=== PATIENT | female | born 1950 | race Caucasian/White ===

== ENCOUNTER → 2021-02-06 10:40 | Outpatient (CLI) | payer MEDICARE, OTHER, SELFPAY ==
--- NOTE | ~2021-02-06 | MM_ITS ---
EXAMINATION: MM screening ama BI w briseida HISTORY: Screening TECHNIQUE: Craniocaudal and mediolateral oblique 3-D tomosynthesis images were obtained and synthetic 2-D images were generated. CAD analysis was submitted and interpreted. COMPARISON: 01/31/2018 BREAST PARENCHYMAL COMPOSITION: There are scattered areas of fibroglandular density. FINDINGS: There is no evidence of suspicious mass, calcification, or architectural distortion to sugg est malignancy in either breast. There has been no suspicious interval change. IMPRESSION: 1. No mammographic evidence of malignancy. 2. Recommend routine screening mammography in one year. BI-RADS Category 1: Negative Reviewed, dictated and finalized at location A.
== END ==
PROVIDERS: PCP Internal Medicine; Visit Provider Internal Medicine
DX: Z12.31 Encounter for screening mammogram for malignant neoplasm of breast (principal)
CPT/HCPCS: 77063; 77067

== ENCOUNTER 2022-07-11 15:48 | Observation (INO) | payer MEDICARE, SELFPAY ==
[2022-07-11] VITALS (42 sets, daily range): BP systolic 98–147; BP diastolic 63–87; PULSE 83–105; RESP 12–27; TEMP 36.7–36.8; O2SAT 92–100; BMI 30.2
--- NOTE | ~2022-07-11 | CT_ITS ---
EXAMINATION: CT brain wo con INDICATION: Transient alteration of awareness COMPARISON: None TECHNIQUE: Standard unenhanced head CT. The dose-length product (DLP) was 529.67 mGy-cm. The mA was a djusted according to patient size. Iterative reconstruction technique was employed. FINDINGS: There is no acute intraparenchymal hemorrhage. No evidence of mass lesion. No evidence of a cute infarction. There is mild periventricular and subcortical hypodensity probably related to small vessel ischemic disease. There is mild prominence of the sulci and ventricles related to cerebral atr ophy. Intracranial calcified cerebral atherosclerosis is noted. There are no extra-axial collections. There is no mass effect or midline shift. Changes in the globes are likely from ocular lens surgery. There is mild mucosal thickening of the paranasal sinuses. There is a small right mastoid effusion. IMPRESSION: 1. No acute intracranial abnormality. 2. Age related findings. Reviewed, dictated and finalized at location B. CAL PHYSICIST
--- NOTE | ~2022-07-11 | XR_ITS ---
EXAMINATION: XR hip RT 2V w AP pelvis DATE: 07/12/2022 13:46 INDICATION: Right hip pain. Fall. TECHNIQUE: An anteroposterior view of the pelvis and 3 views of right hip were obtained. COMPARISON: None. FINDINGS: Bone alignment is normal. No fracture. The hip joint spaces are normal. There is mild lumba r spondylosis. IMPRESSION: 1. Normal hips. Reviewed, dictated and finalized at location A. TIONS FACTORY WORKER IMPRESSION: 1. Normal hips.
--- NOTE | ~2022-07-11 | XR_ITS ---
EXAMINATION: XR chest 1V portable Exam Date/Time: 07/11/2022 17:28 JAVA TECH HISTORY: SYNCOPAL EVENT X TODAY Comparison: None available. RESULT: Lines, tubes, and devices: None. Lungs and pleura: Clear. Cardiomediastinal silhouette: Unremarkable. Other: No acute osseous or upper abdominal finding. IMPRESSION: No acute cardiopulmonary process. Reviewed, dictated and finalized at location K. TECH
--- NOTE | ~2022-07-11 | US_ITS ---
EXAMINATION: US carotid duplex BI DATE: 07/12/2022 11:47 INDICATION: Syncope. Vertigo. TECHNIQUE: Grayscale, color Doppler, and pulsed Doppler images of the cervical carotid arteries were obtained. The degree of vessel stenosis is placed in one of the following categories: normal, <50%, 5 0-69%, >=70% but less than near-occlusion, near-occlusion, or total occlusion. Note that percent sten osis relative to normal distal artery lumen diameter is indirectly measured from velocity measurement s as described by Markus, et al. Radiology 2003; 229:340-346. COMPARISON: None. FINDINGS: RIGHT: The right common carotid artery (CCA) peak systolic velocity (PSV) is 84 cm/s. The right internal car otid artery (ICA) PSV is 113 cm/s. The right ICA end-diastolic velocity (EDV) is 31 cm/s. The right I CA/CCA PSV ratio is 1.4. Grayscale and color Doppler images yield an estimate of <50% diameter reduct ion from plaque in the ICA. The external carotid artery (ECA) PSV is 81 cm/s. There is antegrade flow in the right vertebral artery. LEFT: The left CCA PSV is 85 cm/s. The left ICA PSV is 101 cm/s. The left ICA EDV is 26 cm/s. The left ICA/ CCA PSV ratio is 1.2. Grayscale and color Doppler images yield an estimate of <50% diameter reduction from plaque in the ICA. The ECA PSV is 111 cm/s. There is antegrade flow in the left vertebral arter y. IMPRESSION: 1. <50% stenosis in the right internal carotid artery. 2. <50% stenosis in the left internal carotid artery. Reviewed, dictated and finalized at location A. D OBSERVER
--- NOTE | 2022-07-11 15:54 | ECG_ITS ---
Measurements Intervals [place] Rate: 86 P: 60 UT: 173 QRS: 20 QRSD: 94 T: 63 QT: 381 QTc: 457 Interpretive Statements SINUS RHYTHM POSSIBLE LEFT ATRIAL ENLARGEMENT DELAYED PRECORDIAL R/S TRANSITION MINIMAL Q WAVES- INFERIOR LEADS BORDERLINE ST-T WAVE ABNORMALITY- HIGH LATERAL LEADS BASELINE ARTIFACT- V4-V5 BORDERLINE ECG NO PREVIOUS ECG AVAILABLE FOR COMPARISON Electronically Signed On 07-12-2022 7:45:29 HARDWARE SALES ASSISTANT by Flavio Booth D.O.
--- NOTE | 2022-07-11 17:03 | ED.SYNCOPE ---
HPI - Syncope General Chief Complaint: Syncope Stated Complaint: SYNCOPAL Time Seen by Provider: 07/11/22 16:29 Source: patient, family and RN notes reviewed Mode of arrival: EMS Limitations: no limitations History of Present Illness HPI narrative: This is a 71 year old female who presents for evaluation of a syncopal episode. Family members that were present during patient's syncopal episode are at bedside and they are assisting with history . They report that patient was sitting at dinner table and she told them she felt like she was going to pass out. Patient slumped down into the chair with her eyes rolling back. They held patient up in the chair to prevent her from fall. IT is reported that patient's voice became lower to a whisper and she went unresponsive. They called 911 and they report patient was unresponsive until EMS arrived. On EMS arrival, they laid patient on the floor and she became responsive. She was found to be hypotensive by EMS, and it is reported that patient was orthostatic. Patient was started on IVF by EMS. Patient is sitting up in bed and she states she feels better. She reports she felt pain in her neck and felt like she was going to pass out. She was cold and clammy. She denies similar episode in the past. She denies chest pain, sob, nausea, vomiting , diarrhea or abdominal pain. She denies any medication changes. She states she normally does not eat or drink very much . Related Data Home Medications Medication Instructions Recorded Confirmed atorvastatin 20 mg tablet 20 mg PO HS 07/11/22 07/11/22 brimonidine 0.2 %-timolol 0.5 % 1 drp EACH EYE BID 07/11/22 07/11/22 eye drops (Teofilo) bupropion HCl 150 mg tablet,12 hr 150 mg PO BID 07/11/22 07/11/22 sustained-release cyclobenzaprine 10 mg tablet 10 mg PO TID PRN Muscle Spasm 07/11/22 07/11/22 diclofenac sodium 75 mg 75 mg PO Q12H 07/11/22 07/11/22 tablet,delayed release pantoprazole 40 mg tablet,delayed 40 mg PO DAILY 07/11/22 07/11/22 release valacyclovir 1 gram tablet 1,000 mg PO HS 07/11/22 07/11/22 zolpidem 10 mg tablet 10 mg PO HS 07/11/22 07/11/22 Allergies Allergy/AdvReac Type Severity Reaction Status Date / Time codeine AdvReac Mild Itching Verified 07/12/22 08:32 Review of Systems Constitutional: Constitutional: Denies weakness Cardiovascular: Cardiovascular: Denies syncope, Denies rapid heart rate, Denies irregular heart rhythm, Denies leg edema and Denies dyspnea Respiratory: Respiratory: Denies chest congestion, Denies hemoptysis, Denies excessive phlegm production and Denies dyspnea Gastrointestinal: Gastrointestinal: Denies abdominal pain, Denies hematochezia, Denies diarrhea and Denies vomiting Genitourinary: Genitourinary: Denies hematuria and Denies dysuria Musculoskeletal: Musculoskeletal: Denies joint swelling, Denies loss of height and Denies muscle weakness Neurologic: Reports syncope, Denies focal weakness and Denies weakness PMFSH Past Medical History Medical History (Updated 07/12/22 @ 10:18 by Alem Sawant PA-C) Arthritis Chronic pain Depression GERD (gastroesophageal reflux disease) Hyperlipidemia Surgical History Surgical History Hx of cholecystectomy Family History Family History Father Heart attack Grandparent Diabetes mellitus Alzheimers disease Mother Lung cancer Social History Social History (Updated 07/12/22 @ 10:23 by Alem Sawant PA-C) Social History: patient lives at home alone is independent in daily activities. She works full-time cleaning homes. She designates her daughter, Eliza, as her surrogate decision maker. She would like to be a full code Smoking status: Never smoker Alcohol intake: current Alcohol use details: Couple drinks/year Substance use: never Lack of Transportation: No Lack of Food: Never True Curr
[2022-07-11 17:14] LABS: Basophils Percent Auto 0.5 % (0.2-1.2); Eosinophils Percent Auto 0.6 % (0-4.4); Hematocrit 43.5 % (37.0-47.0); Hemoglobin 14.3 g/dL (12.0-15.0); Immature Granulocyte Absolute 0.03 K/mm3 (0.00-0.031); Immature Granulocyte Percent A 0.5 % (0-0.5); Lymphocytes Absolute Auto 1.31 K/mm3 (0.9-3.2); Mean Corpuscular HGB Conc 32.9 g/dl (32-36); Mean Corpuscular Hemoglobin 31.4 pg (26-34); Mean Corpuscular Volume 95.6 fl (80-100); Mean Platelet Volume 9.4 fl (7.4-10.4); Monocytes Absolute Auto 0.4 K/mm3 (0.1-0.6); Monocytes Percent Auto 5.5 % (2.6-8.5); Neutrophils Absolute Auto 4.8 K/mm3 (1.3-6.7); Neutrophils Percent Auto 72.9 % (45.5-73.1); Platelet Count Result 209 k/mm3 (150-375); Red Blood Count 4.55 M/mm3 (4.2-5.4); Red Cell Distribution Width 13.4 % (11.5-14.5); White Blood Count 6.6 K/mm3 (4.5-10.0)
[2022-07-11 17:26] LABS: Alanine Aminotransferase 19 U/L (6-35); Albumin Level 4.2 g/dL (3.5-5.1); Alkaline Phosphatase 85 U/L (38-126); Anion Gap 10 mmol/L (8-16); Aspartate Amino Transferase 25 U/L (14-36); Bilirubin,Total 0.5 mg/dL (0.2-1.3); Blood Urea Nitrogen 22 mg/dL (7-17); Calcium 9.1 mg/dL (8.4-10.2); Carbon Dioxide 20 mmol/L (22-30); Chloride 106 mmol/L (98-107); Estimated Glomerular Filt Rate > 60; Glucose 97 mg/dL (65-110); Magnesium 1.8 mg/dL (1.6-2.3); Potassium 3.8 mmol/L (3.4-5.0); Sodium 136 mmol/L (137-145)
[2022-07-11 17:38] LABS: Troponin I < 0.012 ng/mL (0.000-0.034)
[2022-07-11 17:50] LABS: Influenza A QL RT-PCR Negative (Negative); Influenza B QL RT-PCR Negative (Negative); SARS-CoV-2 RNA PCR Negative
[2022-07-11 18:41] LABS: Prothrombin Time 12.8 Seconds (11.1-14.7)
[2022-07-11 18:42] LABS: Partial Thromboplastin Time 22.7 SECONDS (22.3-36.8)
[2022-07-11 18:55] LABS: D Dimer 0.35 ug/mL (<0.48)
[2022-07-11] MEDS: SODIUM CHLORIDE 0.9% IV 1,000 ML 999 ML IV CONT (19:07)
[2022-07-11] MEDS: SODIUM CHLORIDE 0.9% IV 1,000 ML 125 ML IV CONT (22:55)
[2022-07-12] VITALS (10 sets, daily range): BP systolic 129–160; BP diastolic 62–85; PULSE 67–94; RESP 18; TEMP 36.3–36.5; O2SAT 97–100
--- NOTE | 2022-07-12 | ECHO_ITS ---
Patient Info Name: Della Crowley Age: 71 years : 1950 Gender: Female Ht: 59 in Wt: 149 lbs BSA: 1.70 m2 HR: 67 bpm BP: 134 / 62 mmHg Heart Rhythm: Sinus Rhythm Technical Quality: Fair Exam Date: 07/12/2022 12:47 PM Exam Location: [facility] Pulmonary Patient Status: Outpatient Admit Date: 07/11/2022 Staff Ordering Physician: Alem Sawant PA-C Hvac Manager: Tala Dobbs RDCS Attending Provider: Alem Sawant PA-C Referring Physician: Savana MCKEON; Exam Type: CA echo doppler color flow Study Info Indications R55 - Syncope and collapse Complete two-dimensional, color flow and Doppler transthoracic echocardiogram is performed. Summary 1. Complete two-dimensional, color flow and Doppler transthoracic echocardiogram is performed. 2. Left ventricular chamber dimension is normal. 3. Left ventricular systolic function is normal, estimated at 65-70%. 4. There is mildly increased left ventricular wall thickness. 5. The left ventricular diastolic function is grade I diastolic dysfunction. 6. Left atrial chamber dimension is mildly enlarged. 7. The mitral valve has anterior prolapse and posterior prolapse. 8. There is mild mitral valve regurgitation. 9. The mitral valve annulus is mildly calcified. 10. There is mild tricuspid valve regurgitation. 11. Moderate pulmonary hypertension, estimated pulmonary arterial systolic pressure is 45 mmHg. Left Ventricle Left ventricular chamber dimension is normal. Left ventricular systolic function is normal, estimated at 65-70%. There is mildly increased left ventricular wall thickness. The left ventricular diastolic function is grade I diastolic dysfunction. Right Ventricle Right ventricular chamber dimension is normal. Right ventricular systolic function is normal. Left Atria Left atrial chamber dimension is mildly enlarged. Right Atria Right atrial chamber dimension is normal. Atrial Septum Intact interatrial septum visualized by color flow imaging. Aortic Valve The aortic valve is trileaflet. There is mild aortic valve sclerosis. There is no aortic valve stenosis. There is trace aortic valve regurgitation. Pulmonic Valve The pulmonic valve is normal. There is no pulmonic valve stenosis. There is trace pulmonic regurgitation. Mitral Valve The mitral valve has anterior prolapse and posterior prolapse. There is no mitral valve stenosis. There is mild mitral valve regurgitation. The mitral valve annulus is mildly calcified. Tricuspid Valve The tricuspid valve leaflets are normal. There is no significant tricuspid valve stenosis. There is mild tricuspid valve regurgitation. Moderate pulmonary hypertension, estimated pulmonary arterial systolic pressure is 45 mmHg. Pericardium/Pleural The pericardium appears normal. There is no pericardial effusion. Inferior Vena Cava Normal inferior vena cava with <50% collapse upon inspiration consistent with elevated right atrial pressure, 10 mmHg. Aorta The aortic root size at the sinus of Valsalva is normal. The prox ascending aorta size is normal. Left Ventricular Outflow Tract Name Value Normal LVOT 2D LVOT Diameter 2.0 cm LVOT
[2022-07-12] MEDS: DICLOFENAC SOD 75 MG TABLET.EC PO (02:27)
[2022-07-12 06:22] LABS: Basophils Percent Auto 0.4 % (0.2-1.2); Eosinophils Percent Auto 0.7 % (0-4.4); Hematocrit 34.9 % (37.0-47.0); Hemoglobin 11.6 g/dL (12.0-15.0); Immature Granulocyte Absolute 0.01 K/mm3 (0.00-0.031); Immature Granulocyte Percent A 0.2 % (0-0.5); Lymphocytes Absolute Auto 1.82 K/mm3 (0.9-3.2); Mean Corpuscular HGB Conc 33.2 g/dl (32-36); Mean Corpuscular Hemoglobin 31.2 pg (26-34); Mean Corpuscular Volume 93.8 fl (80-100); Mean Platelet Volume 9.6 fl (7.4-10.4); Monocytes Absolute Auto 0.4 K/mm3 (0.1-0.6); Monocytes Percent Auto 6.9 % (2.6-8.5); Neutrophils Absolute Auto 3.1 K/mm3 (1.3-6.7); Neutrophils Percent Auto 57.8 % (45.5-73.1); Platelet Count Result 181 k/mm3 (150-375); Red Blood Count 3.72 M/mm3 (4.2-5.4); Red Cell Distribution Width 13.5 % (11.5-14.5); White Blood Count 5.4 K/mm3 (4.5-10.0)
[2022-07-12 06:24] LABS: Alanine Aminotransferase 16 U/L (6-35); Albumin Level 3.5 g/dL (3.5-5.1); Alkaline Phosphatase 64 U/L (38-126); Anion Gap 5 mmol/L (8-16); Aspartate Amino Transferase 18 U/L (14-36); Bilirubin,Total 0.2 mg/dL (0.2-1.3); Blood Urea Nitrogen 16 mg/dL (7-17); Calcium 8.4 mg/dL (8.4-10.2); Carbon Dioxide 23 mmol/L (22-30); Chloride 111 mmol/L (98-107); Estimated Glomerular Filt Rate > 60; Glucose 102 mg/dL (65-110); Potassium 3.5 mmol/L (3.4-5.0); Sodium 139 mmol/L (137-145)
[2022-07-12] MEDS: CYCLOBENZAPRINE HCL 10 MG TABLET PO ×2 (08:42→20:58)
[2022-07-12] MEDS: ACETAMINOPHEN 325 MG TABLET 650 MG PO (08:42)
--- NOTE | 2022-07-12 10:04 | PM.IMHP ---
H&P: HPI History of Present Illness Date/Time: 07/12/22 10:04 Chief Complaint: Syncope Narrative: date of service: 07/12/2022 Della Crowley is a 71-year-old female with a history of arthritis, hyperlipidemia, GERD, depression, and chronic pain followed by pain management who presented to the emergency department on 07/11/2022 after a syncopal episode. Patient states she was eating dinner at the table. she was sitting down for about 45 minutes to an hour, finishing her meal when the sensation hit herthat she was going to pass out. She states she could feel her vision going and could not get her thoughts together. She told her daughter she was going to pass out. Her daughter rushed to her and held her up in the chair. the patient was informed by her daughter that she turned pale and cold, her eyes rolled back in her head and her mouth drooped. This went on for about 20 minutes while awaiting EMS. When EMS arrived, they lower the patient to the ground and she came to. it has been reported the patient was hypotensive and orthostatic. IV fluids started by EMS and patient came to the ED for evaluation. On presentation to the ED, her blood pressure was 129/76, additional vital signs stable, CBC and BMP unremarkable, troponin negative, and chest x-ray revealed no acute cardiopulmonary process. The patient has been admitted to the hospitalist service for observation. At the time of my encounter with the patient, she states that she is feeling back to her usual state of health. She does complain of right hip and back pain which she attributes to being placed on to the ground forcefully after her syncopal episode. She is unsure if she had her head when she was lowered to the ground. She complains of pain mostly in her right hip and back that is different from her typical chronic pain. She denies visual changes, speech changes, weakness, facial drooping, dysphagia, numbness, or tingling of her extremities. 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 she complains of chronic neck pain. she is very concerned, as is her daughter, that she had a stroke though she denies any residual symptoms. Review of Systems Review of Systems: All systems reviewed & are unremarkable except as noted in HPI and below PMFSH Past Medical History Medical History (Updated 07/12/22 @ 10:18 by Alem Sawant PA-C) Arthritis Chronic pain Depression GERD (gastroesophageal reflux disease) Hyperlipidemia Surgical History Surgical History Hx of cholecystectomy Family History Family History Father Heart attack Grandparent Diabetes mellitus Alzheimers disease Mother Lung cancer Social History Social History (Updated 07/12/22 @ 10:23 by Alem Sawant PA-C) Social History: patient lives at home alone is independent in daily activities. She works full-time cleaning homes. She designates her daughter, Eliza, as her surrogate decision maker. She would like to be a full code Smoking status: Never smoker Alcohol intake: current Alcohol use details: Couple drinks/year Substance use: never Lack of Transportation: No Lack of Food: Never True Current Housing: I Have Housing Concerned About Future Housing: No Difficulty Paying Gas/Electric Bills: No Difficulty Paying for Meds: No Currently Unemployed: No Education: High School Diploma/GED Difficulty w/ Childcare or Family Care: No Spiritual care concerns: No Meds Home Medications and Allergies Home Medications Medication Instructions Recorded Confirmed Type atorvastatin 20 mg tablet 20 mg PO HS 07/11/22 07/11/22 History brimonidine 0.2 %-timolol 0.5 % 1 drp EACH EYE BID 07/11/22 07/11/22 History eye drops (Combigan) bupropion HCl 150 mg tablet,1
[2022-07-12] MEDS: LIDOCAINE 5% PATCH 2 PATCH TRANSDERM (10:55)
[2022-07-12] MEDS: ENOXAPARIN 40 MG/0.4 ML SYRINGE SUB-Q (10:55)
[2022-07-12] MEDS: PANTOPRAZOLE 40 MG TABLET PO (10:56)
[2022-07-12] MEDS: buPROPion HCL SR (12 HR) 150 MG TAB PO ×2 (10:56→20:50)
[2022-07-12] MEDS: HYDROcodone/acetaminophen (*CRX) 5-325 MG TABLET 1 TAB PO ×2 (14:57→20:57)
[2022-07-12] MEDS: ZOLPIDEM TARTRATE (*CRX) 5 MG TABLET 10 MG PO (20:50)
[2022-07-12] MEDS: ATORVASTATIN 20 MG TABLET PO (20:50)
[2022-07-12] MEDS: valACYclovir HCL 500 MG TABLET 1000 MG PO (21:29)
[2022-07-13] VITALS (7 sets, daily range): BP systolic 140–153; BP diastolic 63–81; PULSE 68–86; RESP 16–18; TEMP 36.3–36.5; O2SAT 97–99
[2022-07-13 06:51] LABS: Hematocrit 36.6 % (37.0-47.0); Hemoglobin 12.2 g/dL (12.0-15.0); Mean Corpuscular HGB Conc 33.3 g/dl (32-36); Mean Corpuscular Hemoglobin 30.7 pg (26-34); Mean Platelet Volume 9.5 fl (7.4-10.4); Platelet Count Result 192 k/mm3 (150-375); Red Blood Count 3.98 M/mm3 (4.2-5.4); Red Cell Distribution Width 13.3 % (11.5-14.5); White Blood Count 4.1 K/mm3 (4.5-10.0)
[2022-07-13 07:03] LABS: Anion Gap 4 mmol/L (8-16); Blood Urea Nitrogen 8 mg/dL (7-17); Calcium 9.2 mg/dL (8.4-10.2); Carbon Dioxide 28 mmol/L (22-30); Chloride 106 mmol/L (98-107); Estimated Glomerular Filt Rate > 60; Glucose 93 mg/dL (65-110); Potassium 3.3 mmol/L (3.4-5.0); Sodium 138 mmol/L (137-145)
[2022-07-13] MEDS: buPROPion HCL SR (12 HR) 150 MG TAB PO (08:43)
[2022-07-13] MEDS: POTASSIUM CHLORIDE 20 MEQ TABLET PO (08:43)
[2022-07-13] MEDS: PANTOPRAZOLE 40 MG TABLET PO (08:44)
[2022-07-13] MEDS: ENOXAPARIN 40 MG/0.4 ML SYRINGE SUB-Q (08:44)
[2022-07-13] MEDS: LIDOCAINE 5% PATCH 2 PATCH TRANSDERM (08:44)
[2022-07-13] MEDS: CYCLOBENZAPRINE HCL 10 MG TABLET PO (08:52)
[2022-07-13] MEDS: HYDROcodone/acetaminophen (*CRX) 5-325 MG TABLET 1 TAB PO (08:52)
--- NOTE | 2022-07-13 16:49 | PM.DS ---
DS: Admitting Diagnosis Discharge Date 07/13/22 Admitting Diagnosis syncope DS: Discharge Diagnosis Discharge Diagnosis (1) Syncope: Code(s): R55 - Syncope and collapse Status: Acute Assessment and Plan: (2) Hip pain: Code(s): M25.559 - Pain in unspecified hip Status: Acute Assessment and Plan: (3) Chronic pain: Code(s): G89.29 - Other chronic pain Status: Acute Assessment and Plan: DS: Summary Hospital Course Hospital Course: date of admission: 07/11/2022 date of discharge: 07/13/2022 Della Crowley is a 71-year-old female with a history of arthritis, hyperlipidemia, GERD, depression, and chronic pain followed by pain management who presented to the emergency department on 07/11/2022 after a syncopal episode.?On presentation to the ED, her blood pressure was 129/76, additional vital signs stable, CBC and BMP unremarkable, troponin negative, and chest x-ray revealed no acute cardiopulmonary process.? she was admitted to the hospitalist service for further evaluation and management. Please see above for further details. Patient had unremarkable workup including negative head CT, negative carotid Dopplers, unremarkable echocardiogram, negative orthostatic vital signs. She was monitored on telemetry for over 24 hours with no evidence of dysrhythmia or pauses. She will continue with a 30 day media monitor following discharge.? Patient was rehydrated with IV fluids in felt back to her usual state of health. She was able to ambulate without difficulty. Blood pressures remained stable. Patient complained of hip pain when lowered to ground. Hip x-ray with no evidence of fracture or malalignment. Symptoms resolved. She will follow-up with her PCP in 1 week for further monitoring. Given patient's overall improvement, she was determined to no longer require inpatient care. Discussed with patient and her family worrisome signs and symptoms for which to return and she was educated on her medications. She was discharged in hemodynamically stable condition on 07/13/2022. Time Spent with Patient Time attestation: Total time spent providing and/or coordinating discharge services: 40 minutes Time spent: Greater than 30 minutes Exam Narrative: General:? well-nourished well-appearing 71-year-old female,? sitting up in bed, comfortable, NARD Neuro: awake, alert and oriented x4, speech clear,? no focal neuro deficits noted HEENMT:? normocephalic, atraumatic, EOMI, sclerae anicteric, moist oral mucosa Respiratory: clear to auscultation bilaterally, nonlabored breathing Cardio: regular rate, regular rhythm with S1-S2 Abdomen:? nondistended, normoactive bowel sounds, soft, nontender to palpation Extremities: no edema, erythema, or tenderness to palpation Skin: no rashes or lesions, warm and dry Psych: appropriate mood and affect, judgment and insight intact DS: Data Data Completed and Pending Labs on day of discharge: Labs from last 24 hours 07/13/22 07/13/22 06:27 06:27 WBC 4.1 L RBC 3.98 L Hgb 12.2 Hct 36.6 L MCV 92.0 MCH 30.7 MCHC 33.3 RDW 13.3 Plt Count 192 MPV 9.5 Sodium 138 Potassium 3.3 L Chloride 106 Carbon Dioxide 28 Anion Gap 4 L BUN 8 D Creatinine 0.60 L Estim Creat Clear Calc Not Reportable Estimated GFR > 60 Glucose 93 Calcium 9.2 Additional Comments Additional comments: ITS Impressions Chest X-Ray 07/11/22 18:01 IMPRESSION: No acute cardiopulmonary process. Head CT 07/12/22 11:52 IMPRESSION: 1. No acute intracranial abnormality. 2. Age related findings. Carotid Doppler Study 07/12/22 11:55 IMPRESSION: 1. <50% stenosis in the right internal carotid artery. 2. <50% stenosis in the left internal carotid artery. Hip/Pelvis X-Ray 07/12/22 13:46 IMPRESSION: 1. Normal hips. Discharge Plan Discharge Attending physician on discharge: Chasity Blue
== END 2022-07-13 15:07 | disposition home or self-care (01) ==
LOC: ANHED 19:49 → ANH3MEDSUR 07-12 07:17
PROVIDERS: Emergency Medicine; Admitting Provider Family Medicine; Emergency Provider General Practice; PCP Internal Medicine; Visit Provider Physician Assistant
DX: I95.1 Orthostatic hypotension (principal); M25.559 Pain in unspecified hip; M19.90 Unspecified osteoarthritis, unspecified site; G89.29 Other chronic pain; M54.2 Cervicalgia; M25.519 Pain in unspecified shoulder; M54.9 Dorsalgia, unspecified; F32.A Depression, unspecified; K21.9 Gastro-esophageal reflux disease without esophagitis; E78.5 Hyperlipidemia, unspecified; Z82.49 Family history of ischemic heart disease and other diseases of the circulatory system; F10.90 Alcohol use, unspecified, uncomplicated; I08.1 Rheumatic disorders of both mitral and tricuspid valves; I27.20 Pulmonary hypertension, unspecified; Z79.899 Other long term (current) drug therapy; Z20.822 Contact with and (suspected) exposure to COVID-19
CPT/HCPCS: 36415; 70450; 71045; 73502; 80048; 80053; 83735; 84484; 85025; 85027; 85380; 85610; 85730; 87636; 93005; 93306; 93880; 96360; 96361; 96372; 99285; A9270; G0378; J1650; J7030

== ENCOUNTER → 2023-04-11 13:34 | Outpatient (CLI) | payer MEDICARE, SELFPAY ==
--- NOTE | ~2023-04-11 | MM_ITS ---
EXAMINATION: MM screening ama BI w briseida HISTORY: Screening mammogram TECHNIQUE: Craniocaudal and mediolateral oblique 3-D tomosynthesis images were obtained and synthetic 2-D images were generated. CAD analysis was submitted and interpreted. COMPARISON: 02/06/2021 bilateral screening mammogram BREAST PARENCHYMAL COMPOSITION: FINDINGS: Multiple bilateral benign calcifications are noted. There is no evidence of suspicious mass , calcification, or architectural distortion to suggest malignancy in either breast. There has been n o suspicious interval change. IMPRESSION: 1. No mammographic evidence of malignancy. 2. Recommend routine screening mammography in one year. BI-RADS Category 2: Benign finding(s). Reviewed, dictated and finalized at location A.
== END ==
PROVIDERS: PCP Internal Medicine; Visit Provider Internal Medicine
DX: Z12.31 Encounter for screening mammogram for malignant neoplasm of breast (principal)
CPT/HCPCS: 77063; 77067

== ENCOUNTER 2023-06-03 00:33 | Day surgery (SDC) | payer MEDICARE, SELFPAY ==
[2023-05-23 08:46] VITALS: BMI 24.3
--- NOTE | 2023-06-01 09:05 | SUR.PREOP ---
Addendum entered by PATRICK Mack 06/01/23 09:07: Patient stated she is driving for her procedure and daughter and grandson picking her up after. She mentioned she does not drive in the dark and might be a little late arriving. Discussed her leaving her house at 7 and we would make accommodations for her. Patient voiced understanding. Original Note: Patient called regarding upcoming procedure. Reviewed preop instructions, appointment times, and procedure prep.
--- NOTE | 2023-06-02 13:30 | PM.HPGS ---
History of Present Illness History of Present Illness Consent: Risks, benefits, and alternatives have been discussed and questions answered. Patient agrees to proceed with procedure. Chief complaint: neoplasm of the colon Narrative: Della Crowley is a 72 year old female referred for colon cancer screening. Review of Systems Review of Systems: All systems reviewed & are unremarkable except as noted in HPI and below PMFSH Past Medical History Medical History Arthritis Chronic pain Depression GERD (gastroesophageal reflux disease) Hyperlipidemia Surgical History Surgical History Hx of cholecystectomy Family History Family History Father Heart attack Grandparent Diabetes mellitus Alzheimers disease Mother Lung cancer Social History Social History Social History: patient lives at home alone is independent in daily activities. She works full-time cleaning homes. She designates her daughter, Eliza, as her surrogate decision maker. She would like to be a full code Smoking status: Never smoker Alcohol intake: current Alcohol use details: Couple drinks/year Substance use: never Substance use type: does not use Lack of Transportation: No Lack of Food: Never True Current Housing: I Have Housing Concerned About Future Housing: No Difficulty Paying Gas/Electric Bills: No Difficulty Paying for Meds: No Currently Unemployed: No Education: High School Diploma/GED Difficulty w/ Childcare or Family Care: No Living arrangements: alone Spiritual care concerns: No Meds Home Medications and Allergies Home Medications Medication Instructions Recorded Confirmed Type atorvastatin 20 mg tablet 20 mg PO HS 07/11/22 05/23/23 History brimonidine 0.2 %-timolol 0.5 % 1 drp EACH EYE BID 07/11/22 05/23/23 History eye drops (Combigan) bupropion HCl 150 mg tablet,12 hr 150 mg PO BID 07/11/22 05/23/23 History sustained-release cyclobenzaprine 10 mg tablet 10 mg PO TID PRN Muscle Spasm 07/11/22 05/23/23 History diclofenac sodium 75 mg 75 mg PO Q12H 07/11/22 05/23/23 History tablet,delayed release pantoprazole 40 mg tablet,delayed 40 mg PO DAILY 07/11/22 05/23/23 History release valacyclovir 1 gram tablet 1,000 mg PO BID 07/11/22 05/23/23 History zolpidem 10 mg tablet 10 mg PO HS 07/11/22 05/23/23 History semaglutide 0.25 mg or 0.5 mg (2 0.5 mg subcut WEEKLY Wt loss 05/23/23 05/23/23 History mg/1.5 mL) subcutaneous pen injector Allergies Allergy/AdvReac Type Severity Reaction Status Date / Time codeine AdvReac Mild Itching Verified 05/23/23 08:44 Exam Const: General: alert Orientation/consciousness: patient oriented x3 Resp: Auscultation: clear to auscultation bilaterally Cardio: Rhythm: regular rhythm GI: GI Palp: Yes Soft to palpation and No Tenderness to palpation present (GI) Neuro: General: patient oriented x3 Assessment and Plan Assessment and plan (1) Colon cancer screening: Code(s): Z12.11 - Encounter for screening for malignant neoplasm of colon Status: Acute Assessment and Plan: Colonoscopy with possible biopsy or polypectomy or cautery or injection of substances.
[2023-06-03 07:47] VITALS: BP 129/60; PULSE 64; RESP 20; TEMP 36.2; O2SAT 100; BMI 24.3
[2023-06-03] MEDS: LACTATED RINGERS 1,000 ML 150 ML IV CONT (07:59)
--- NOTE | 2023-06-03 08:14 | WPDANESEPPF ---
Anes - Initial Pre Proc Eval Procedure: Operation Date: 06/03/23 08:30 Proposed Procedures p Screening Colonoscopy - Conner Payne MD Date/Time: 06/03/23 08:14 Surgeon: Conner Payne MD Pre Op Diagnosis: neoplasm of the colon Patient Data Age: 72 Gender: F Height: 1.5 m Weight: 54.5 kg Last Vital Signs Temp 97.2 F L 06/03/23 07:47 Pulse 64 06/03/23 07:47 Resp 20 06/03/23 07:47 BP 129/60 06/03/23 07:47 Pulse Ox 100 06/03/23 07:47 O2 Del Method Room Air 06/03/23 07:47 Allergies Allergy/AdvReac Type Severity Reaction Status Date / Time codeine AdvReac Mild Itching Verified 05/23/23 08:44 Home Medications Medication Instructions Recorded Confirmed Type atorvastatin 20 mg tablet 20 mg PO HS 07/11/22 05/23/23 History brimonidine 0.2 %-timolol 0.5 % 1 drp EACH EYE BID 07/11/22 05/23/23 History eye drops (Combigan) bupropion HCl 150 mg tablet,12 hr 150 mg PO BID 07/11/22 05/23/23 History sustained-release cyclobenzaprine 10 mg tablet 10 mg PO TID PRN Muscle Spasm 07/11/22 05/23/23 History diclofenac sodium 75 mg 75 mg PO Q12H 07/11/22 05/23/23 History tablet,delayed release pantoprazole 40 mg tablet,delayed 40 mg PO DAILY 07/11/22 05/23/23 History release valacyclovir 1 gram tablet 1,000 mg PO BID 07/11/22 05/23/23 History zolpidem 10 mg tablet 10 mg PO HS 07/11/22 05/23/23 History semaglutide 0.25 mg or 0.5 mg (2 0.5 mg subcut WEEKLY Wt loss 05/23/23 05/23/23 History mg/1.5 mL) subcutaneous pen injector Patient hx anesthesia problems: none Family hx anesthesia problems: none Results Review: All pre-operative results and documents have been reviewed as part of the pre-operative evaluation. [facility] Past Medical History Medical History Arthritis Chronic pain Depression GERD (gastroesophageal reflux disease) Hyperlipidemia Surgical History Surgical History Hx of cholecystectomy Family History Family History Father Heart attack Grandparent Diabetes mellitus Alzheimers disease Mother Lung cancer Social History Social History Social History: patient lives at home alone is independent in daily activities. She works full-time cleaning homes. She designates her daughter, Eliza, as her surrogate decision maker. She would like to be a full code Smoking status: Never smoker Alcohol intake: current Alcohol use details: Couple drinks/year Substance use: never Substance use type: does not use Lack of Transportation: No Lack of Food: Never True Current Housing: I Have Housing Concerned About Future Housing: No Difficulty Paying Gas/Electric Bills: No Difficulty Paying for Meds: No Currently Unemployed: No Education: High School Diploma/GED Difficulty w/ Childcare or Family Care: No Living arrangements: alone Spiritual care concerns: No Anes - Eval Final PreProcedure Day of Procedure 06/03/23 08:14 Patient weight: normal Heart: regular rate and rhythm Lungs: clear to auscultation Airway: Mallampati scale class II Neurological: alert and oriented Last oral intake: >/= 8 hours ASA classification: II Emergent: no Anesthetic plan: proceed Anesthesia type and monitoring: general GIVS and standard monitoring Results Review: All pre-operative results and documents have been reviewed as part of the pre-operative evaluation. Informed Consent: The patient's anesthetic plan and its attendant risks and benefits were discussed with the patient/family/POA. Questions were solicited and answers provided to the satisfaction of the patient/family/POA.
[2023-06-03 08:34] VITALS: BP 99/55; PULSE 69; RESP 18; O2SAT 98
[2023-06-03 08:44] VITALS: BP 100/55; PULSE 67; RESP 16; O2SAT 98
[2023-06-03 08:54] VITALS: BP 122/74; PULSE 63; RESP 22; O2SAT 100
== END 2023-06-03 09:03 | disposition home or self-care (01) ==
PROVIDERS: PCP Internal Medicine; Visit Provider Internal Medicine Gastroenterology
PROC: 0DJD8ZZ Inspection of Lower Intestinal Tract, Via Natural or Artificial Opening Endoscopic (ICD-10-PCS; CPT 45378; principal; 2023-06-03 08:30)
DX: Z12.11 Encounter for screening for malignant neoplasm of colon (principal); K57.30 Diverticulosis of large intestine without perforation or abscess without bleeding; E78.5 Hyperlipidemia, unspecified; F32.A Depression, unspecified; K21.9 Gastro-esophageal reflux disease without esophagitis; G89.29 Other chronic pain; Z79.85 Long-term (current) use of injectable non-insulin antidiabetic drugs; Z90.49 Acquired absence of other specified parts of digestive tract; Z82.49 Family history of ischemic heart disease and other diseases of the circulatory system; Z80.1 Family history of malignant neoplasm of trachea, bronchus and lung
CPT/HCPCS: G0105; J2704; J7120

== ENCOUNTER 2023-12-11 18:52 | Emergency (ER) | payer MEDICARE, SELFPAY ==
--- NOTE | ~2023-12-11 | US_ITS ---
Duplex Sonography of the right extremity: Indication: Swelling Findings: Sagittal and transverse B-mode images as well as color-flow imaging were performed on the r ight femoral and popliteal veins. B-mode examination was done without and with compression in the tr ansverse plane. There is good visualization of the common femoral, proximal profunda femoral, superf icial femoral, greater saphenous, and popliteal veins. Normal flow was seen on color-flow imaging. N ormal compressibility was demonstrated. Visualized calf veins are also patent. Impression: No evidence of deep vein thrombosis involving the right lower extremity. Reviewed, dictated and finalized at location M. Impression: No evidence of deep vein thrombosis involving the right lower extremity.
[2023-12-11 19:15] VITALS: BP 100/83; PULSE 95; RESP 15; TEMP 36.7; O2SAT 100
--- NOTE | 2023-12-11 19:50 | ED.EXTPRO ---
HPI - Extremity Problem General Chief complaint: Extremity Problem,Nontraumatic Stated complaint: r/o dvt Time Seen by Provider: 12/11/23 19:14 History of Present Illness HPI Narrative: patient states for last 2-3 weeks she has noticed a small knot to her right thigh, which is also where she injects her B12, and she states that this knot seems to have gotten bigger and she describes it as a burning sensation to a small patch area on her anterior thigh. Denies any recent trauma. Related Data Home Medications Medication Instructions Recorded Confirmed atorvastatin 20 mg tablet 20 mg PO HS 07/11/22 05/23/23 brimonidine 0.2 %-timolol 0.5 % 1 drp EACH EYE BID 07/11/22 05/23/23 eye drops (Combigan) bupropion HCl 150 mg tablet,12 hr 150 mg PO BID 07/11/22 05/23/23 sustained-release cyclobenzaprine 10 mg tablet 10 mg PO TID PRN Muscle Spasm 07/11/22 05/23/23 diclofenac sodium 75 mg 75 mg PO Q12H 07/11/22 05/23/23 tablet,delayed release pantoprazole 40 mg tablet,delayed 40 mg PO DAILY 07/11/22 05/23/23 release valacyclovir 1 gram tablet 1,000 mg PO BID 07/11/22 05/23/23 zolpidem 10 mg tablet 10 mg PO HS 07/11/22 05/23/23 semaglutide 0.25 mg or 0.5 mg (2 0.5 mg subcut WEEKLY Wt loss 05/23/23 05/23/23 mg/1.5 mL) subcutaneous pen injector Allergies Allergy/AdvReac Type Severity Reaction Status Date / Time codeine AdvReac Mild Itching Verified 12/11/23 19:19 Review of Systems Review of Systems: All systems reviewed & are unremarkable except as noted in HPI and below PMFSH Past Medical History Medical History Arthritis Chronic pain Depression GERD (gastroesophageal reflux disease) Hyperlipidemia Surgical History Surgical History Hx of cholecystectomy Family History Family History Father Heart attack Grandparent Diabetes mellitus Alzheimers disease Mother Lung cancer Social History Social History Social History: patient lives at home alone is independent in daily activities. She works full-time cleaning homes. She designates her daughter, Eliza, as her surrogate decision maker. She would like to be a full code Smoking status: Never smoker Alcohol intake: current Alcohol use details: Couple drinks/year Substance use: never Substance use type: does not use Lack of Transportation: No Lack of Food: Never True Current Housing: I Have Housing Concerned About Future Housing: No Difficulty Paying Gas/Electric Bills: No Difficulty Paying for Meds: No Currently Unemployed: No Education: High School Diploma/GED Difficulty w/ Childcare or Family Care: No Living arrangements: alone Spiritual care concerns: No Exam Narrative: EXAMINATION OF ORGAN SYSTEMS/BODY AREAS: Constitutional: Vital signs per nursing GENERAL:[No acute distress, non-toxic appearing.] HEAD: Normal with no signs of head trauma. EYES: EOMI, conjunctiva normal ENT: Hearing grossly intact LUNGS: Nonlabored breathing. HEART: [Regular rate and rhythm] ABD: [Soft], [nontender to palpation] EXT: Normal range of motion SKIN: Small patch of slight redness and paresthesias to R anterior thigh NEURO: [Alert and oriented x 3. No gross focal sensory or strength deficits.] PSYCH: Normal affect Course Vital Signs Vital signs: Vital Signs Temperature 98.0 F 12/11/23 19:15 Pulse Rate 95 12/11/23 19:15 Respiratory Rate 15 12/11/23 19:15 Blood Pressure 100/83 12/11/23 19:15 Pulse Oximetry 100 12/11/23 19:15 Oxygen Delivery Room Air 12/11/23 19:15 Temperature 98.0 F 12/11/23 19:15 Pulse Rate 95 12/11/23 19:15 Respiratory Rate 15 12/11/23 19:15 Blood Pressure 100/83 12/11/23 19:15 Pulse Oximetry 100 12/11/23 19:15 Oxygen Delivery Room Air 0
== END 2023-12-11 20:01 | disposition home or self-care (01) ==
PROVIDERS: Emergency Provider Emergency Medicine; PCP Internal Medicine
DX: M79.651 Pain in right thigh (principal); M19.90 Unspecified osteoarthritis, unspecified site; F32.A Depression, unspecified; K21.9 Gastro-esophageal reflux disease without esophagitis; E78.5 Hyperlipidemia, unspecified
CPT/HCPCS: 93971; 99284

== ENCOUNTER 2024-12-21 10:31 | Outpatient (CLI) | payer MEDICARE, SELFPAY ==
--- NOTE | ~2024-12-21 | MM_ITS ---
EXAMINATION: MM screening [facility] BI w briseida HISTORY: Screening TECHNIQUE: Craniocaudal and mediolateral oblique 3-D tomosynthesis images were obtained and synthetic 2-D images were generated. CAD analysis was submitted and interpreted. COMPARISON: Comparison to multiple prior studies sequentially, with oldest reviewed study dated 01/31. BREAST PARENCHYMAL COMPOSITION: Not dense: There are scattered areas of fibroglandular density. FINDINGS: There is a new mass in the lower inner quadrant of the right breast, anterior third. There is a new focal asymmetry in the upper outer quadrant of the left breast with associated punctate calc ifications. IMPRESSION: 1. New focal right breast mass lower inner quadrant. New focal asymmetry upper outer quadrant of the left breast. 2. Additional mammographic views and possible breast ultrasound are recommended. BI-RADS Category 0: Incomplete: Needs additional imaging evaluation. Reviewed, dictated and finalized at location A. IMPRESSION: 1. New focal right breast mass lower inner quadrant. New focal asymmetry upper outer quadrant of the left breast. 2. Additional mammographic views and possible breast ultrasound are recommended . BI-RADS Category 0: Incomplete: Needs additional imaging evaluation.
== END 2024-12-21 10:32 | disposition home or self-care (01) ==
LOC: MICIMG 10:34
PROVIDERS: PCP Internal Medicine; Visit Provider Internal Medicine
DX: Z12.31 Encounter for screening mammogram for malignant neoplasm of breast (principal); R92.8 Other abnormal and inconclusive findings on diagnostic imaging of breast
CPT/HCPCS: 77063; 77067

== ENCOUNTER 2025-01-18 08:43 | Outpatient (CLI) | payer MEDICARE, SELFPAY ==
--- NOTE | ~2025-01-18 | MMUS_ITS ---
EXAMINATION: MM diagnostic [facility] BI w briseida, US breast BI limited HISTORY: Follow-up breast asymmetry TECHNIQUE: Additional 3-D tomosynthesis images of the breasts were performed and synthetic 2-D images were generated. CAD analysis was submitted and interpreted. High resolution Limited bilateral breast ultrasound was performed. COMPARISON: Comparison to multiple prior studies sequentially, with oldest reviewed study dated 01/31. BREAST PARENCHYMAL COMPOSITION: Not dense: There are scattered areas of fibroglandular density. FINDINGS: MAMMOGRAPHIC FINDINGS: Asymmetry in the upper outer quadrant of the left breast is less apparent with spot compression views , likely superimposed fibroglandular content. There is a small mass in the lower inner quadrant of th e right breast, anterior third. ULTRASOUND: Limited right breast ultrasound: At 3:00, 1 cm from the nipple there is a 4 mm cyst corresponding to the mammographic finding. Limited left breast ultrasound: At 3:00, 2 cm from the nipple there is a 3 mm cyst corresponding to t he area of mammographic concern. No suspicious masses in either breast to suggest malignancy. IMPRESSION: 1. No evidence for malignancy in either breast. Benign findings. 2. Routine yearly screening mammogram and regular clinical breast examination are recommended. BI-RADS Category 2: Benign finding(s). Reviewed, dictated and finalized at location B. IMPRESSION: 1. No evidence for malignancy in either breast. Benign findings. 2. Routine yearly screening mammogram and regular clinical breast examination a re recommended. BI-RADS Category 2: Benign finding(s).
== END 2025-01-18 08:44 | disposition home or self-care (01) ==
LOC: MICIMG 08:43
PROVIDERS: PCP Internal Medicine; Visit Provider Internal Medicine
DX: R92.8 Other abnormal and inconclusive findings on diagnostic imaging of breast (principal)
CPT/HCPCS: 76642; 77062; 77066; G0279